=== PATIENT | female | born 1970 | race Caucasian/White ===

== ENCOUNTER 2023-05-13 13:23 | Outpatient (CLI) | payer MEDICARE, MEDICAID, SELFPAY ==
--- NOTE | ~2023-05-13 | US_ITS ---
EXAMINATION: US pelvic complete w TV DATE: 05/13/2023 15:06 INDICATION: Pelvic mass TECHNIQUE: Multiple transabdominal and endovaginal sonographic images of the pelvis were obtained. COMPARISON: None. FINDINGS: Latter is normal. The uterus is not visualized and reportedly surgically absent. The right ovary ara ures 2.1 x 1.1 x 0.9 cm. Pressure flow with arterial waveforms identified in the right ovary on color Doppler. The left ovary is not visualized. There is no free fluid or abnormal masses identified in t he pelvis. IMPRESSION: 1. Status post hysterectomy and normal right ovary. Left ovary not visualized. 2. No abnormal masses or fluid collections identified. Reviewed, dictated and finalized at location A. [employer]
== END 2023-05-13 13:24 | disposition home or self-care (01) ==
PROVIDERS: PCP Nurse Practitioner Family; Visit Provider Obstetrics & Gynecology Gynecology
DX: R19.00 Intra-abdominal and pelvic swelling, mass and lump, unspecified site (principal)
CPT/HCPCS: 76830; 76856